=== PATIENT | female | born 1955 | race Caucasian/White ===

== ENCOUNTER 2019-05-10 13:45 | Inpatient (IN) ==
[2019-05-10] MEDS ORDERED: ASPIRIN PO ONE (13:54)
[2019-05-10] MEDS ORDERED: ASPIRIN PR ONE (13:54)
--- NOTE | 2019-05-10 14:20 | Diag Imaging Result Doc PS360 ---
EXAM: CHEST-2 VIEWS HISTORY: chest pain TECHNIQUE: Two views COMPARISON: 02/25/2019 FINDINGS: The lungs are well expanded. The heart is enlarged. The vessels are not distended. There are no infiltrates. No pleural effusions. IMPRESSION: Cardiomegaly Electronically signed by Fahad Locke 05/10/2019 2:18 PM
--- NOTE | 2019-05-10 14:35 | PROVIDER DOCUMENTATION ---
HPI-General Adult - General Chief Complaint: Chest Pain Stated Complaint: SOB Time Seen by Provider: 05/10/19 14:14 Source: patient Allergies/Adverse Reactions: Patient Allergies Allergy/AdvReac Type Severity Reaction Status Date / Time cyclobenzaprine HCl * Allergy Severe breathing Verified 12/27/18 11:49 [From Flexeril] problems losartan potassium * Allergy Severe hypertensive Verified 12/27/18 11:49 [From Cozaar] crisis meperidine HCl * Allergy Severe breathing Verified 12/27/18 11:49 [From Demerol] problems metronidazole [From Flagyl] Allergy Severe breathing Verified 12/27/18 11:49 problems minoxidil Allergy Severe hypertensive Verified 12/27/18 11:49 crisis ofloxacin [From Floxin] Allergy Severe breathing Verified 12/27/18 11:49 problems cefaclor [From Ceclor] Allergy Intermediate RASH Verified 12/27/18 11:49 lisinopril [From Zestril] Allergy Intermediate cough and Verified 12/27/18 11:49 itching amoxicillin Allergy HIVES Verified 12/27/18 11:49 candesartan [From Atacand] Allergy "hypertensive Verified 12/27/18 11:49 crisis" Home Medications: Home Medication List Medication Instructions Recorded Confirmed Last Taken Type Glimepiride 4 mg PO BID 10/26/14 11/02/16 11/02/16 08:00 History Indapamide 1.25 mg PO DAILY 10/26/14 11/02/16 11/02/16 08:00 History Labetalol [Trandate] 200 mg PO BID 10/26/14 11/02/16 11/02/16 08:00 History Metformin HCl 1,000 mg PO BID 10/26/14 11/02/16 11/02/16 08:00 History Omeprazole 20 mg PO DAILY 10/26/14 11/02/16 11/02/16 08:00 History Tramadol [Ultram] 50 mg PO DIRECTED 10/26/14 11/02/16 10/26/14 07:00 History 100mg Acyclovir [Zovirax] 400 mg PO 5XDAY #50 tablet 11/02/16 Unknown Rx Fluticasone Propionate 1 dose PO DAILY 11/02/16 11/02/16 11/02/16 08:00 History Losartan [Cozaar] 1 tab PO DAILY 11/02/16 11/02/16 11/02/16 08:00 History Methylprednisolone [Medrol Dosepak] 4 mg PO DIRECTED 7 Days package 11/02/16 Unknown Rx Triamcinolone Acetonide 1 applicatn PO DAILY 11/02/16 11/02/16 11/02/16 08:00 History - History of Present Illness -Gen Adult Nature of Presenting Problems: 63yo female presents with CC of shortness of breath and shoulder pressure. The patient reports that she has noted these symptoms over the last 2 weeks and they have been progressive. The patient denies fever >100, vomiting, sweats, chest pain, recent travel, recent surgery/hospitalizaion, hx of blood clots, smoking, or hx of CHF or NC. The patient does report hx of COPD-mild, need for thyroid nodule bx, DM, HTN. The patient shortness of breath is worse with laying down and worse with exersion. Her pressure is worse with exersion as well. The patient is non-toxic appearing. Location of Pain/Injury: reports: upper body (shoulders) Pain Radiation: reports: back Quality of Pain: reports: pressure Severity: reports: mild Onset/Duration: reports: other (several weeks) Timing: reports: still present Context/Activities at Onset: reports: none Modifying Factors: worse with: breathing, lying down, movement Associated Symptoms: reports: back/neck pain, diarrhea, fever/chills, muscle aches, shortness of breath. denies: chest pain Review of Systems - Adult - REVIEW OF SYSTEMS - ADULT Constitutional: reports: fever (99.8) Eyes: reports: no symptoms reported. denies: eye pain Ears, Nose, Mouth & Throat: reports: no symptoms reported. denies: throat pain Cardiovascular: reports: orthopnea, other (pressure in te shoulders). denies: chest pain Respiratory: reports: cough, dyspnea on exertion, shortness of breath. denies: hemoptysis Gastrointestinal: reports: diarrhea, nausea. denies: abdominal pain, vomiting Genitourinary: reports: no symptoms reported. denies: flank pain Musculoskeletal: reports: muscle aches (shoulders) Integumentary: reports: no symptoms reported Neurological: reports: headache/migraines Psychiatric: reports: no symptoms reported. denies: alcohol/drug dependence Endocrine: reports: no symptoms reported Hematologic/Lymphatic: reports: no symptoms reported, other (no bleeding) Allergic/Immunologic: reports: no symptoms reported Past History - Adult - PAST MEDICAL HISTORY-ADULT Review of Records: reports: Old Records Reviewed Major Childhood Illnesses: reports: denies history Cardiovascular: reports: HTN, hyperlipidemia Respiratory: reports: denies history Gastrointestinal: reports: IBS Obstetrical/Gynecological: reports: denies history Genitourinary: reports: denies history Musculoskeletal: reports: arthritis, chronic pain Neurological: reports: denies history Psychiatric: reports: denies history Endocrine/Immune: reports: Diabetes Other Conditions: reports: denies history - PRIOR SURGERIES/PROCEDURES Surgical/Procedure History: reports: BTL - IMMUNIZATION STATUS Childhood Immunizations: See Nurse Assessment Flu Vaccine: See Nurse Assessment - FAMILY HISTORY Family History: reviewed, not pertinent Physical Exam-General - PHYSICAL EXAM-ADULT Exam Limited by: Obesity Initial Vital Signs Reviewed: Yes - CONSTITUTIONAL General Appearance: appears well, alert, no apparent distress - EYES Eyes: negative: conjuctival exudate - HEAD, EARS, NOSE, MOUTH & THROAT HENMT: normocephalic/atraumatic, moist mucous membranes. negative: hearing deficit - NECK Neck: non-tender, normal inspection, other (no mass noted) - RESPIRATORY Respiratory: lungs clear, normal breath sounds, no respiratory distress, wheezing (very mild). negative: crackles, rales - CARDIOVASCULAR Cardiovascular: regular rate, rhythm, systolic murmur. negative: no edema (1+ bilateral LE edema) - MUSCULOSKELETAL Extremity: non-tender, swelling (bilateral) - SKIN Integumentary: normal color, warm/dry - NEUROLOGIC Neurologic: grossly normal. negative: aphasia - PSYCHIATRIC Psych/Mental Status: normal mood/affect, normal thought content, normal thought process Progress - PLAN OF CARE/RESULTS Progress/Plan/Lab Results: Vital Signs - 8 hr 05/10/19 13:48 Temperature 97.9 F Pulse Rate 66 Respiratory Rate 19 Blood Pressure 190/78 O2 Sat by Pulse Oximetry 97 Orders Category Date Time Status Cardiac Monitoring DIRECTED Care 05/10/19 13:54 Active Oxygen Therapy- ED Nursing DIRECTED Care 05/10/19 13:54 Active Saline Loc NOW Care 05/10/19 13:54 Active CHEST-2 VIEWS [RAD] Stat Exams 05/10/19 13:54 Completed CBC WITH ELECTRONIC DIFF [HEME] Stat Lab 05/10/19 13:54 Uncollected CK PROFILE [SP CHEM] Stat Lab 05/10/19 13:54 Uncollected COMPREHENSIVE METABOLIC PANEL [CHEM] Stat Lab 05/10/19 13:54 Uncollected PRO B-NATRIURETIC PEPTIDE Stat Lab 05/10/19 13:54 Uncollected PROTIME WITH INR [COAG] Stat Lab 05/10/19 13:54 Uncollected PTT [COAG] Stat Lab 05/10/19 13:54 Uncollected TROPONIN T HIGH SENSITIVITY Stat Lab 05/10/19 13:54 Uncollected Aspirin Med 05/10/19 13:54 Discontinued 325 mg PO NOW ONE CP/SOB/Palp >45 yrs of Age Stat Oth 05/10/19 13:54 Ordered EKG [EKG] Stat Ther 05/10/19 13:54 Ordered Result Diagrams: 05/10/19 14:26 05/10/19 14:26 - REASSESSMENT Reassessment #1 Status: other (Given patient complaints of dypnsea and pressure with exertion, without other notable cause as well as higher cardiac risk patient with HEART score of 5, will plan for admission for repeat stress testing. Discussed with the hospitalists team, who have accepted the patient. The patient is agreeable with this plan.) Departure - Departure Date of Disposition Decision: 05/10/19 Time of Disposition Decision: 16:10 DIAGNOSIS: Chest pain Qualifiers: Chest pain type: unspecified Qualified Code(s): R07.9 - Chest pain, unspecified Disposition: ADMITTED INPATIENT 09 Certified Medical Emergency: Emergent Condition: Fair Referrals and Follow-Ups: June Cross MD [Primary Care Provider] - - Critical Care Note This patient required my direct & personal management of CC.: No Attestation - Physician/ AMALIA Attestation Patient care was provided by Advanced Practice Provider:: No The physician spent face to face time with patient:: Yes Advanced Practice Provider documentation review:: Supervising physician onsite and consulted in the evaluation and care of this patient. The physician did have a face to face encounter with the patient. - HEART Score HEART Score: History: Slightly Suspicious HEART Score: ECG: Non-Specific Repolarization Disturbance/LBBB/PM HEART Score: Age: > or = 65 Years HEART Score: Risk Factors for Atherosclerotic Disease: > or = 3 Risk Factors or History of Atherosclerotic Disease HEART Score: Troponin: < or = Normal Limit Total HEART Score:: 5
--- NOTE | 2019-05-10 14:47 | EKG Report ---
Test Performed on : 05/10/2019 2:00:34 PM Test Reason : chest discomfort Blood Pressure : / mmHG Vent. Rate : 065 BPM Atrial Rate : 065 BPM P-R Int : 150 ms QRS Dur : 088 ms QT Int : 432 ms P-R-T Axes : 039 -10 070 degrees QTc Int : 449 ms Normal sinus rhythm. Voltage criteria for left ventricular hypertrophy Nonspecific ST and T wave abnormality Abnormal ECG When compared with ECG of 27-DEC-2018 10:55, [place] interval has decreased Vent. rate has decreased BY 59 BPM Unconfirmed Result
[2019-05-10 14:52] LABS: BASO# 0.03 X1000 (0.0-0.2); BASO% 0.4 % (0.0-0.8); EOS# 0.12 X1000 (0.0-0.7); EOS% 1.5 % (0.0-10.0); HEMATOCRIT 34.9 % (37.0-47.0); HEMOGLOBIN 10.4 g/dL (12.0-16.0); IMM GRAN# 0.02 X1000 (0.0-0.04); IMM GRAN% 0.2 % (0.0-0.5); LYMPH% 30.7 % (20.5-51.1); MCHC 29.8 g/dL (33-37); MONO% 7.4 % (1.7-9.3); MPV 10.8 FL (7.4-10.4); NEUT# 4.88 X1000 (1.4-6.5); NEUT% 59.8 % (42.2-75.2); PLT 224 X1000 (130-400); RBC 4.53 XMIL (4.2-5.4); RDW 16.6 % (11.5-14.5); WBC 8.15 X1000 (4.8-10.8)
[2019-05-10 14:59] LABS: INR 1.13; PROTIME 14.6 Seconds (11.0-16.0)
[2019-05-10 15:00] LABS: PTT 32.8 Seconds (22.3-41.8)
[2019-05-10 15:11] LABS: AGAP 14; ALB/GLOB RATIO 1.2; ALBUMIN 3.9 g/dL (3.5-5.0); ALKALINE PHOSPHATASE 84 U/L (32-104); BUN 14 mg/dL (8-22); CALCIUM 9.2 mg/dL (8.8-10.2); CHLORIDE 96 mmol/L (98-107); CK PROFILE 168 U/L (24-173); COSMO 274; CREATININE 0.8 mg/dL (0.5-0.9); ESTIMATED GFR > 60; GLUCOSE 64 mg/dL (70-104); GOT 54 U/L (10-30); GPT 56 U/L (10-36); POTASSIUM 4.2 mmol/L (3.5-5.1); SODIUM 138 mmol/L (136-145); TCO2 28 mmol/L (25-35); TOTAL BILIRUBIN 0.28 mg/dL (0.20-1.00); TOTAL PROTEIN 7.1 g/dL (6.3-8.3)
[2019-05-10] MEDS ORDERED: TYLENOL PO PRN (17:45)
[2019-05-10] MEDS ORDERED: ZOFRAN IV PRN (17:45)
[2019-05-10] MEDS ORDERED: APRESOLINE IV ONE (19:19)
[2019-05-10] MEDS ORDERED: VENTOLIN HFA INH PRN (19:42)
[2019-05-10] MEDS ORDERED: ULTRAM PO SCH (19:45)
[2019-05-10] MEDS: GLUCOPHAGE XR PO SCH (20:34)
[2019-05-10] MEDS: AMARYL PO SCH (20:34)
[2019-05-10] MEDS: HUMALOG SUBQ SCH (20:34)
[2019-05-10] MEDS: TRANDATE PO SCH (20:34)
[2019-05-10] MEDS: FISH OIL CONCENTRATE PO SCH (20:34)
[2019-05-10] MEDS: VITAMIN D PO SCH (20:34)
[2019-05-10] MEDS ORDERED: GLUCOPHAGE XR PO SCH (21:00)
--- NOTE | 2019-05-10 21:04 | HISTORY AND PHYSICAL ---
PRIMARY CARE PROVIDER: June Cross. RANCH HAND LIVESTOCK: Dr. Comer. CHIEF COMPLAINT: Hyperventilation, pain in neck and shoulders. HISTORY OF PRESENT ILLNESS: Ms. Eden is a morbidly obese, 63-year-old, female, with a past medical history of reported tachycardia recently diagnosed back in January, asthma, moderate COPD, hypertension, hyperlipidemia, IBS, arthritis and chronic pain, diabetes mellitus, who reports over the last several months, she has been having issues with shortness of breath. However, over the last few weeks, she has become more short of breath with exertion. Over the last couple of days, it has become worse walking short distances. She has had to stop and rest while doing chores around her house and it has caused her to hyperventilate. She has even had pain when bending over. She reports these episodes as hyperventilation and it causes pain in her neck and goes down into the back of her shoulders. It is not really associated with any dizziness, diaphoresis. She has had similar pain like this before when she has gotten strangled on water before. She is currently pain free. She is saturating well on room air at 97%. She was hypertensive at 190/78. Chest x-ray shows cardiomegaly. Her initial troponin was 14, CK was 168, ProBNP was 432, which is down from her previous in November. We will admit her and put her in for a rule out. She just had a previous echo and stress test back in January, that did not show any ischemia. Her last EF was 65%. PAST MEDICAL HISTORY: Per HPI. PAST SURGICAL HISTORY: Cataract, tubal, partial thyroid. FAMILY HISTORY: Numerous family members with thyroid cancer. Heart disease in mother with VA, father VA, brother with VA, and a brother who of sepsis. SOCIAL HISTORY: She has been exposed to secondhand smoke, but she was never a smoker herself. She did work with welders. No alcohol or illicit drug use. REVIEW OF SYSTEMS: A 12-point review of systems complete and negative, except for those mentioned in the HPI. PHYSICAL EXAMINATION: INITIAL VITAL SIGNS: Temperature is 97.9 degrees, heart rate 66, respirations 19, blood pressure 190/78, O2 is 97% on room air. GENERAL: Ms. Eden is a 63-year-old, obese female, who is sitting up in the bed in no acute distress. HEENT: Atraumatic, normocephalic. PERRL. Poor dentition. NECK: Supple. Trachea midline. CARDIOVASCULAR: S1, S2 appreciated. Systolic murmur. RESPIRATORY: Lung sounds clear bilaterally. Decreased in the bases. GASTROINTESTINAL: Obese, soft, nontender, nondistended. Positive bowel sounds in 4 quadrants. EXTREMITIES: Lower extremities negative for edema. NEUROLOGIC: No focal deficits noted. DIAGNOSTIC DATA: EKG: Normal sinus rhythm with LVH, nonspecific ST and T-wave abnormalities at 65 beats per minute. LABORATORY DATA: White count 8, hemoglobin and hematocrit 10 and 34, platelet count is 224,000. Sodium 138, potassium 4.2, BUN 14, creatinine 0.8, blood glucose is 64, AST 54, ALT 56. ProBNP is 432. ASSESSMENT AND PLAN: 1. Chest pain rule out. She definitely does have cardiac risk factors. She did have a negative perfusion scan back in January. A normal EF back in January on an echocardiogram. We will continue to trend her cardiac enzymes for [address] Hollis in the a.m. to see what cardiac testing he would like to pursue. Continue her on her home medications when verified. Check a lipid profile. Continue on aspirin. 2. Hypertension. We will put in for some p.r.n. Apresoline. 3. Diabetes. We will place her on sliding scale with patterned blood sugars. Check a hemoglobin A1c. 4. Thyroid issues. She reports she is not hypothyroid. She did have a thyroid scan back in January 2019, that did show an enlarged heterogeneous left lobe of the thyroid containing a few small nodules. We will check a TSH and a free T4. 5. Chronic pain. 6. Asthma and moderate chronic obstructive pulmonary disease. She is not in any exacerbation. 7. Mild transaminitis. Further recommendations to follow physician evaluation, laboratory and diagnostic data. Dictated by GRACIE Nicholson for Scar Barcenas MD cc: MD June Sweeney MD MTDD
[2019-05-10] MEDS ORDERED: APRESOLINE IV PRN (22:20)
--- NOTE | 2019-05-11 00:21 | HISTORY AND PHYSICAL ---
ADDENDUM: Patient seen and examined by me [id number]. All the laboratory, vital signs and images were reviewed. The patient came to the emergency department with chief complaint of shortness of breath and some chest tightness that has been happening after physical activity. This patient is morbidly obese with a BMI of 58.9, and she does have pulmonary hypertension. Her 2 sets of troponin have been negative, and I do not see any big issues with the EKG. Some T-wave abnormality. Also this patient had in January 2019, a couple months ago, a stress test that did not show any acute coronary syndrome. I will put this patient back on her medications. I will get a new EKG in the morning and also a new set of troponins. Likely the patient will be discharged tomorrow. I agree with the rest of the nurse practitioner's assessment and plan. cc: Scar Barcenas MD
[2019-05-11] MEDS: HUMALOG SUBQ SCH ×2 (06:03→12:25)
[2019-05-11] MEDS ORDERED: PRILOSEC PO SCH ×2 (07:00)
[2019-05-11 07:57] LABS: BASO# 0.04 X1000 (0.0-0.2); BASO% 0.6 % (0.0-0.8); EOS% 1.4 % (0.0-10.0); HEMATOCRIT 34.3 % (37.0-47.0); HEMOGLOBIN 10.1 g/dL (12.0-16.0); IMM GRAN# 0.02 X1000 (0.0-0.04); IMM GRAN% 0.3 % (0.0-0.5); LYMPH# 2.18 X1000 (1.2-3.4); MCH 22.4 PG (27-31); MCHC 29.4 g/dL (33-37); MCV 76.2 FL (81-99); MONO# 0.51 X1000 (0.11-0.59); MPV 10.2 FL (7.4-10.4); NEUT# 4.41 X1000 (1.4-6.5); NEUT% 60.7 % (42.2-75.2); PLT 205 X1000 (130-400); RDW 16.5 % (11.5-14.5); WBC 7.26 X1000 (4.8-10.8)
--- NOTE | 2019-05-11 08:27 | Diag Imaging Result Doc PS360 ---
EXAM: CHEST-2 VIEWS INDICATION: Chest Pain TECHNIQUE: 3 views COMPARISON: 05/10/2019 FINDINGS: The lungs remain grossly clear. There is no discrete pleural fluid collection or pneumothorax. There is stable cardiomegaly. Central vasculature is mildly prominent similar to previous studies likely representing chronic mild pulmonary venous congestion. IMPRESSION: Cardiomegaly and suggestion of mild pulmonary venous congestion. Electronically signed by Arthur Aiken 05/11/2019 8:25 AM
[2019-05-11 08:36] LABS: AGAP 14; ALB/GLOB RATIO 1.1; ALBUMIN 3.9 g/dL (3.5-5.0); ALKALINE PHOSPHATASE 81 U/L (32-104); BUN 13 mg/dL (8-22); CALCIUM 9.1 mg/dL (8.8-10.2); CHLORIDE 95 mmol/L (98-107); CHOLESTEROL 263 mg/dL (0-200); COSMO 275; CREATININE 0.7 mg/dL (0.5-0.9); ESTIMATED GFR > 60; GLUCOSE 119 mg/dL (70-104); GOT 55 U/L (10-30); GPT 56 U/L (10-36); HDL 52 mg/dL (45-65); LDL 184 mg/dL; MAGNESIUM 1.9 mg/dL (1.5-2.7); POTASSIUM 3.9 mmol/L (3.5-5.1); SODIUM 137 mmol/L (136-145); TCO2 28 mmol/L (25-35); TOTAL BILIRUBIN 0.61 mg/dL (0.20-1.00); TOTAL PROTEIN 7.5 g/dL (6.3-8.3); TRIGLYCERIDES 136 mg/dL (35-135); VLDL 27 mg/dL
--- NOTE | 2019-05-11 08:37 | EKG Report ---
Test Performed on : 05/11/2019 06:15:01 AM Test Reason : CP Blood Pressure : / mmHG Vent. Rate : 069 BPM Atrial Rate : 069 BPM P-R Int : 142 ms QRS Dur : 088 ms QT Int : 460 ms P-R-T Axes : 039 -09 021 degrees QTc Int : 492 ms Normal sinus rhythm. Voltage criteria for left ventricular hypertrophy Abnormal ECG When compared with ECG of 10-MAY-2019 14:00, (Unconfirmed) No significant change was found Confirmed by Christopher HENDERSON, Suresh Espinoza ([id number]) on 05/12/2019 6:55:20 PM
[2019-05-11] MEDS ORDERED: LOZOL PO SCH (09:00)
[2019-05-11] MEDS ORDERED: ASPIRIN PO SCH (09:00)
[2019-05-11] MEDS ORDERED: MAG-OX PO SCH (09:00)
[2019-05-11] MEDS ORDERED: KENALOG 0.1% CREAM TOP SCH (09:00)
[2019-05-11] MEDS: FISH OIL CONCENTRATE PO SCH (09:40)
[2019-05-11] MEDS: GLUCOPHAGE XR PO SCH (09:40)
[2019-05-11] MEDS: AMARYL PO SCH (09:40)
[2019-05-11] MEDS: TRANDATE PO SCH (09:41)
[2019-05-11] MEDS: VITAMIN D PO SCH (09:41)
[2019-05-11 11:58] LABS: HEMOGLOBIN A1C 6.7 % (4.8-6.0)
[2019-05-11 12:23] LABS: FREE T4 1.52 ng/dL (0.93-1.70); TSH 3.36 uIUmL (0.27-4.20)
[2019-05-11 12:25] VITALS: BP 139/66
--- NOTE | 2019-05-11 14:18 | PROGRESS NOTE ---
DATE: 05/11/2019 SUBJECTIVE: The patient seems to be feeling a bit better today compared with yesterday. All of her high sensitive troponins have been negative. Blood pressure seems to be better controlled now, it was really high in the 190s and 200s at some point. Cardiology Department has been consulted, but I believe this patient can be discharged today at some point if Cardiology Department is okay. OBJECTIVE: Vital Signs: Temperature 97.8 degrees, pulse 67, respiratory rate 18, blood pressure 123/95, oxygen saturation 100% on room air. HEENT: Head normocephalic, no trauma, PERRLA. Neck: Supple. I do not see JVD, she has a big a neck size, central trachea. Chest: Clear to auscultation. Decreased breath sounds at the bases mostly. Cardiovascular: Regular rate and rhythm, systolic murmur. Abdomen: Soft, obese, protuberant, nontender, nondistended. Positive bowel sounds. Extremities: Trace lower extremity edema. No clubbing. No cyanosis. Neurological: No focal deficits. LABORATORY: WBC 7.2, hemoglobin 10.1, hematocrit 34.3, platelet count 205,000 sodium 137, potassium 3.9, chloride 95, bicarbonate 28, BUN 13, creatinine 0.7, glucose 119, calcium 9.1. ASSESSMENT AND PLAN: 1. Chest pain and shortness of breath. I do believe this is multifactorial. This patient has a history of pulmonary hypertension. She had a recent stress test that was negative. Ejection fraction is within normal limits, but she is morbidly obese, she is sedentary, and likely this patient also has some physical deconditioning. I had a large conversation with this patient about diet and exercise and she seems to understand. Troponins were negative and I do not see any EKG abnormality. I do believe, if Cardiology is okay, this patient can be discharged soon. 2. Hypertension, better controlled now. Yesterday, the patient's blood pressure was elevated. 3. Diabetes. Continue with same management stable. She had an episode of hypoglycemia yesterday as well. 4. History of thyroid issues. This patient does not know if she has some problem with hyper- or hypothyroidism, pending TSH and free T4 which has been already collected. 5. Chronic pain. Aware. 6. Asthma, moderate COPD, not in exacerbation. 7. Mild transaminitis, probably due to fatty liver. cc: Scar Barcenas MD
--- NOTE | 2019-05-12 00:48 | CARDIOLOGY CONSULTATION ---
DATE: 05/11/2019 CARDIOLOGY CONSULTATION REASON FOR CONSULTATION: Hypertension, chest pain. HISTORY OF PRESENT ILLNESS: Mrs. Eden is a 63-year-old lady with past medical history of moderate COPD, hypertension, IBS, arthritis, diabetes. Has been having episodes of shortness of breath. This has worsened recently. She came in with pain in her neck going down to her shoulder, not associated with any dizziness or diaphoresis. When she came to the emergency room, her blood pressure was 190/78. Her cardiac enzymes were negative. Electrocardiogram was unremarkable. She was admitted, medications were adjusted. Today, she feels well. Does not complain of any chest pain. There is no palpitations in the recent past. REVIEW OF SYSTEM: A 14-point review of systems was done. GI System: There is no history of nausea, vomiting, or diarrhea. There is no history of hematemesis or melena. Central nervous system: No focal weakness to suggest a CVA, TIA. PAST MEDICAL HISTORY: 1. Morbid obesity. 2. Asthma. 3. COPD. 4. Hypertension. 5. Hyperlipidemia. 6. Irritable bowel syndrome. 7. Arthritis. 8. Chronic pain. 9. Diabetes. 10. Cataract surgery. 11. Partial thyroidectomy. HOME MEDICATIONS INCLUDE: 1. Metformin 1000 mg b.i.d. 2. Indapamide. 3. Metformin hydrochloride. 4. Labetalol 200 mg p.o. b.i.d. 5. Triamcinolone. 6. Glimepiride. 7. Omeprazole. ALLERGIES: Losartan, loperamide, cyclobenzaprine. SOCIAL HISTORY: She does not smoke. There is no history of alcohol abuse. PHYSICAL EXAMINATION: Vital signs: Blood pressure when she came in was 190/78. Today blood pressure 139/63. Neck: Jugular venous pressure was normal. Cardiovascular: First and second heart sounds were heard. There was no S3 gallop. Respiratory: Normal air entry. There is no crepitations or rhonchi. Abdomen: Soft, obese, nontender. There was no guarding or rigidity. Bowel sounds were heard. Central nervous system: Alert and oriented, was moving all 4 extremities. Extremities: Revealed no pedal edema. HEENT: Atraumatic, normocephalic. Pupils were equal and reacting to light. INVESTIGATIONS: Troponin-T high sensitivity with normal. Electrocardiogram reviewed did not reveal any acute ST, T changes to suggest ischemia or infarction. Sodium 137, potassium 3.9, BUN 13, creatinine 0.7. Glucose 198. Hematology: Hemoglobin 10.1, hematocrit 34 platelet count of 205. Chest x-ray revealed cardiomegaly. ASSESSMENT AND PLAN: Ms Rebecca Eden is a 63-year-old lady with history of hypertension, diabetes, morbid obesity, chronic obstructive pulmonary disease, comes in with complaints of shortness of breath and chest discomfort. I suspect this is secondary to accelerated hypertension. Blood pressure on the current medications are better controlled. Would recommend discharge her home. She is allergic to LOSARTAN. Her recent echocardiogram and stress test are unremarkable. She can follow up with our office post discharge. cc: Chacho Hollis MD
--- NOTE | 2019-05-12 10:15 | DISCHARGE SUMMARY ---
ADMISSION DATE: 05/10/2019 DISCHARGE DATE: 05/11/2019 PRIMARY CARE PROVIDER: Dr. June Cross. SIDE DOOR WORKER: Dr. Comer. CHIEF COMPLAINT: Hyperventilation, pain in the back of the neck and the shoulders. DISCHARGE DIAGNOSES: 1. Atypical chest pain ruled out with serial cardiac enzyme. No changes in her electrocardiogram. It does show some T-wave abnormality, but they were also seen back in 01/2019. She also had a normal stress and echocardiogram with Dr. Comer back in 01/2019. We do believe that this chest pain and shortness of breath is multifactorial. The patient does have pulmonary hypertension. She is also morbidly obese, sedentary, and has physical deconditioning. A large conversation was had about her diet and exercise. Dr. Hollis has already spoke to the patient as well about her diet and exercise and taking medications and following up with her gas charger, Dr. Comer, within the next couple of weeks. 2. Hypertension, now better controlled. 3. Diabetes, controlled. Continue with a diabetic diet, home regimen. 4. Thyroid issues that the patient received scans for. She has had partial thyroidectomy in the past. 5. Chronic pain. Aware. 6. Asthma, moderate. 7. Chronic obstructive pulmonary disease, not in exacerbation. 8. Mild transaminitis, probably secondary to fatty liver. 9. Reported sleep apnea. The patient was wanting a sleep study while she was admitted to the hospital. I did have a conversation with her that we do not provide sleep studies in the hospital, that we actually did not offer them at all on this campus. They were outpatient procedures only. I gave her the names of Dr. Lutz and Dr. Garcia, and she could always refer to Dr. Comer, as well as her PCP, Dr. June Cross, for more recommendations for doctors for sleep studies. She has had one in the past and did not tolerated it and did not finish the study, and again, we discussed with her sleep apnea about weight loss, diet, and exercise. HOSPITAL COURSE: Briefly, Ms. Eden is a morbidly obese, 63-year-old, female with a past medical history of reported tachycardia recently diagnosed back in January, placed on labetalol, asthma, moderate COPD, hypertension, hyperlipidemia, IBS, arthritis, chronic pain, diabetes mellitus, who reported over the last several months, she had been having issues with shortness of breath. She did have a cardiac workup with Dr. Comer, with an echo and stress test that was negative. Her EF was normal. She does have pulmonary hypertension. EKG does show some ST abnormalities and some LVH that is unchanged, but she does report her shortness of breath has increased over the last few weeks, and over the last 4 days, she has become more short of breath with exertion. She reports it as hyperventilating, with a sharp pain in the back of her neck, into her shoulder blades. It is not really associated with any diaphoresis or dizziness. She reports that she has had similar pain like this before when she has gotten strangled on water. She has remained chest pain-free since she has been admitted to the hospital. She has been saturating well on room air. She was initially hypertensive in the ER at 190/78. That was not attempted to be treated. We did give her some p.r.n. Apresoline, restarted her home labetalol. Her chest x-ray showed cardiomegaly. All her troponins have been negative. Her proBNP is down. Dr. Hollis followed up with her today, and again, recommendation is to follow diet and exercise, and home medications were recommended, and to follow up with Dr. Comer over the next couple of weeks. VITAL SIGNS: At time of discharge, temperature was 97.6 degrees, heart rate 64, respirations 20, blood pressure 139/66, O2 is 98% on room air. DISCHARGE DIET: Diabetic. DISCHARGE MEDICATIONS: 1. Fish oil 1 capsule p.o. b.i.d. 2. Flonase 1 spray nasal b.i.d. 3. Glimepiride 4 mg p.o. b.i.d. 4. Glucophage XR 2 tablets p.o. b.i.d. 5. Magnesium 500 mg p.o. daily. 6. Metformin ER 1000 mg p.o. b.i.d. 7. Prilosec 20 mg p.o. daily. 8. Labetalol 200 mg p.o. b.i.d. 9. Ultram 50 mg p.o. as directed. 10. Albuterol sulfate 2 puffs inhaled every 6 hours p.r.n. 11. Vitamin D3, 1000 units p.o. b.i.d. 12. Topical steroid cream daily. FOLLOWUP: Ms. Eden is being discharged back home with self-care, to follow up with her gas charger, Dr. Comer, within the next 2 to 3 weeks, as well as her primary care provider, Dr. June Cross. I explained to her several times that she needs to follow her diet. She can return to the ED and call 911 for any worsening of symptoms. Dictated by GRACIE Nicholson for Scar Barcenas MD cc: MD Dennis Sweeney MD Martha Read, MD
== END 2019-05-11 17:02 | disposition home or self-care (01) | DRG 313 ==
LOC: ED 13:45 → EDIPHOLD 16:20 → 3N 19:31
PROVIDERS: ATTEND Internal Medicine